=== PATIENT | male | born 1975 | race Caucasian/White ===

== ENCOUNTER 2024-03-28 02:27 | Emergency (ER) | payer BC ==
[2024-03-28] MEDS ORDERED: Morphine 4 MG/ML VIAL ONE (03:42)
== END 2024-03-28 04:38 | disposition home or self-care (01) ==
LOC: CSHERS 02:27
DX: S92.001A Unspecified fracture of right calcaneus, initial encounter for closed fracture (principal); W01.10XA Fall on same level from slipping, tripping and stumbling with subsequent striking against unspecified object, initial encounter
CPT/HCPCS: 28400; 96372; J2270